=== PATIENT | male | born 1950 | race Caucasian/White ===

== ENCOUNTER 2016-11-02 09:38 | Day surgery (SDC) | payer OTHER ==
--- NOTE | 2016-11-02 07:59 | HP ---
DATE OF SURGERY: 11/02/2016 HISTORY OF PRESENT ILLNESS: The patient is a 65 year-old last colonoscopy seven to eight years ago. He had history of polyps at that time and in need of follow up screening colonoscopy. No bloody stools. No change in bowel movements. PAST MEDICAL HISTORY: Heart disease, diabetes, hypertension. PAST SURGICAL HISTORY: Heart bypass in the past, cholecystectomy in the past. MEDICATIONS: Rosuvastatin, metoprolol, lisinopril, Metformin. ALLERGIES: NKDA. FAMILY HISTORY: Father with colon cancer. Heart disease, diabetes. SOCIAL HISTORY: Chews tobacco, denies smoking currently. Reports some alcohol use denies abuse. REVIEW OF SYSTEMS: Twelve systems reviewed per admission assessment. No chest pain or palpitations other systems negative or noncontributory as above and per preadmission questionnaire. PHYSICAL EXAMINATION: GENERAL: No acute distress. HEENT: Sclerae nonicteric. NECK: No JVD. CHEST: Equal excursion, nonlabored breathing. CVS: Regular rate and rhythm. ABDOMEN: Soft. No peritoneal signs. EXTREMITIES: No significant edema. NEURO: Alert, oriented, moving extremities symmetrically. No gross motor deficits noted. RECTAL: Deferred timed to endoscopy exam. IMPRESSION: History of polyps. Last colonoscopy seven to eight years ago, family history of colon cancer. Need for screening colonoscopy. I feel he is a candidate. He was shown the risk sheet, explained the procedure in detail but not limited to bleeding or infection, small risk of bowel injury or perforation possibly requiring open procedure, small risk of missed or nondiagnosis or incomplete exam possibly requiring barium enema, other studies or procedures, general risk of anesthesia or sedation but not limited to, risk of bowel prep, risk of sedation, postoperative risk of nausea and vomiting or cramping but not limited to. He understands and agrees to the planned procedure and will proceed with outpatient colonoscopy.
[~2016-11-02 09:38] MED LIST: DIPRIVAN 200 MG/20 ML IV ONE; Ketamine HCl 50 MG/ML IJ ONE
[2016-11-02] MEDS ORDERED: Lactated Ringers 1,000 ML IV SCH (10:00)
[2016-11-02 12:32] VITALS: BP 142/67; PULSE 44; O2SAT 98
--- NOTE | 2016-11-03 09:27 | OP ---
SURGERY DATE/TIME: 11/02/2016 1040 PREOPERATIVE DIAGNOSIS: History of polyp, last colonoscopy seven to eight years ago. POSTOPERATIVE DIAGNOSES: 1) Poor prep limiting the exam. 2) Mild diverticulosis. 3) Small internal and external hemorrhoids. 4) Small polyp transverse colon. 5) Small raised lesion versus early polyp or hyperplastic lesion of sigmoid colon. PROCEDURE: Colonoscopy to cecum with hot biopsy removal small polyp transverse colon, hot biopsy and removal of small raised lesions sigmoid colon. SURGEON: Dr. Mich Chandler. ANESTHESIA: MAC. ESTIMATED BLOOD LOSS: Minimal. INDICATIONS: As noted above. Risks and benefits explained in detail but not limited to and consent obtained. DESCRIPTION OF PROCEDURE AND FINDINGS: The patient is taken to the operating room. After official time out and no disagreement with planned procedure, digital rectal exam did not reveal any rectal masses. He did have some small internal and external hemorrhoids. Video colonoscope inserted and passed up the tortuous sigmoid, descending, transverse colon. With the aid of external pressure the scope was able to be passed around to the ascending colon to the cecum. Appendiceal orifice and valve well visualized as well as the tip of the terminal ileum grossly unremarkable. On withdrawal of the scope prep overall was poor with areas of liquidy semisolid and solid stool limiting the exam for small lesions this was suction irrigated as well as possible but did limit the exam. The scope is slowly and carefully withdrawn over the next 12 to 15 minutes with a small polyp noted in the transverse colon that was removed with hot biopsy forceps with brief bursts of cautery elevating it well away from bowel wall. Good hemostasis was noted. Otherwise there was mild diverticulosis. Scope pulled back in sigmoid colon. A very vague small raised lesion. Whether this is an early polyp versus hyperplastic lesion, hyperplasia of a fold is removed with hot biopsy forceps with brief bursts of cautery. Good hemostasis noted. Otherwise in the rectum he had some small internal and external hemorrhoids. There were no signs of any large polyps, masses or obstructing lesions but again bowel prep is poor and did limit the exam. Awaiting final path results but is to remain on follow up endoscopy recommendations.
== END 2016-11-02 12:15 | disposition home or self-care (01) ==
LOC: SDC 09:38
PROVIDERS: ATTEND Surgery
PROC: 0DBL8ZX Excision of Transverse Colon, Via Natural or Artificial Opening Endoscopic, Diagnostic (ICD-10-PCS; principal; 2016-11-02)
PROC: 0DBP8ZX Excision of Rectum, Via Natural or Artificial Opening Endoscopic, Diagnostic (ICD-10-PCS; 2016-11-02)
DX: K57.90 Diverticulosis of intestine, part unspecified, without perforation or abscess without bleeding (principal); D12.3 Benign neoplasm of transverse colon; D12.5 Benign neoplasm of sigmoid colon; K63.9 Disease of intestine, unspecified; K64.4 Residual hemorrhoidal skin tags; K64.8 Other hemorrhoids; Z86.010 Personal history of colon polyps
CPT/HCPCS: 00810; 36415; J2704

== ENCOUNTER 2022-12-17 08:04 | Day surgery (SDC) | payer MEDICARE, OTHER ==
--- NOTE | 2022-12-15 13:06 | HP ---
DATE OF SURGERY: 12/17/2022 HISTORY OF PRESENT ILLNESS: The patient is a 72-year-old man presents for history of colon polyps and family history of colon cancer. The last colonoscopy was with Dr. Chandler. The patient had some colon polyps. He denies any GI signs or symptoms. Father had colon cancer. The patient had a history of upper GI repair. PAST MEDICAL HISTORY: Hypertension, diabetes. PAST SURGICAL HISTORY: Heart stents, coronary artery bypass graft. Lung resection. Cholecystectomy. Abdominal aortic aneurysm repair. ALLERGIES: NKDA. ADHESIVE TAPE. MEDICATIONS: Testosterone, metoprolol, lisinopril, Trulicity. FAMILY HISTORY: Heart disease, colon cancer. SOCIAL HISTORY: Drinks alcohol daily. REVIEW OF SYSTEMS: CONSTITUTIONAL: Denies fever or chills. CHEST: Denies shortness of breath. CVS: Denies chest pain. ABDOMEN: Denies abdominal pain. PHYSICAL EXAMINATION: GENERAL: No acute distress. CHEST: Nonlabored. No shortness of breath. CVS: Regular rate and rhythm. ABDOMEN: Soft. IMPRESSION: History of colon polyps and family history of colon cancer. PLAN: Colonoscopy with Dr. William Tiwari. As dictated by Vania Phillips NP.
[2022-12-17] MEDS ORDERED: Lactated Ringers 1,000 ML IV ONE (08:21)
[2022-12-17] MEDS ORDERED: Lactated Ringers 1,000 ML IV SCH (08:30)
[2022-12-17] MEDS ORDERED: DIPRIVAN 200 MG/20 ML IV ONE ×2 (10:10→10:30)
[2022-12-17] MEDS ORDERED: Xylocaine-Mpf 2% 5 Ml Vial ONE (10:10)
[2022-12-17] MEDS ORDERED: Versed 2 MG/2 ML Injection ONE (10:11)
--- NOTE | 2022-12-17 11:45 | OP ---
SURGERY DATE/TIME: 12/17/2022 1024 PREOPERATIVE DIAGNOSIS: Follow up polyps, history of colon cancer in the family. POSTOPERATIVE DIAGNOSIS: Distal sigmoid 8 mm and 5 mm polyp. PROCEDURES: 1) Colonoscopic examination to cecum. 2) Hot polypectomy x2 of 8 mm and 5 mm distal sigmoid in one jar. SURGEON: William Tiwari M.D. ANESTHESIA: MAC. COMPLICATIONS: None. CONDITION: Stable. INDICATION: The patient has history of polyps, has history of colon cancer in the family. DESCRIPTION OF PROCEDURE: Taken to endoscopy. Left lateral decubitus position. Anal digital examination satisfactory. Scope introduced. Scope advanced to the cecum. Appendiceal orifice normal. Ileocecal valve normal. Base of the cecum normal. Ascending, hepatic, transverse, splenic, descending, sigmoid. In the distal sigmoid an 8 mm and a 5 mm polyp were taken to extinction submitted in one jar. Rectum normal. Anus normal. Follow up five years.
[2022-12-17 11:51] VITALS: O2SAT 97
[2022-12-17 11:55] VITALS: BP 134/72; PULSE 68
== END 2022-12-17 11:53 | disposition home or self-care (01) ==
LOC: SDC 08:04
PROVIDERS: ATTEND Surgery
DX: Z09 Encounter for follow-up examination after completed treatment for conditions other than malignant neoplasm (principal); Z86.010 Personal history of colon polyps; Z80.0 Family history of malignant neoplasm of digestive organs; E11.9 Type 2 diabetes mellitus without complications; K63.5 Polyp of colon
CPT/HCPCS: 82947; J2250; J2704

== ENCOUNTER 2023-02-24 19:38 | Emergency (ER) | payer MEDICARE, OTHER ==
[2023-02-24] MEDS ORDERED: XYLOCAINE 1% HCL 20 ML MDV ONE (19:49)
[2023-02-24 19:56] VITALS: RESP 18; TEMP 98.1
[2023-02-24] MEDS ORDERED: Adacel Vial IM ONE ×2 (19:58→20:18)
[2023-02-24] MEDS ORDERED: Rocephin 1000 MG INJ IM ONE (19:58)
[2023-02-24] MEDS ORDERED: Rocephin 1000 MG INJ ONE (20:18)
--- NOTE | 2023-02-24 20:20 | ERPHSYRPT ---
- History of Present Illness Time Seen by Provider: 02/24/23 20:35 Source: patient Exam Limitations: no limitations Physician History: Patient is a 72-year-old male presents to our ED for evaluation and treatment of laceration to left leg. Patient states he was walking by and cut his leg on a chainsaw. The chainsaw was sitting idle not running. Injury occurred just prior to arrival. Laceration is 10 cm in length. The wound is oozing blood. No other injuries reported. Pain described as an ache that is localized. No radiation. Pain worse with movement and palpation. Pain improved with rest. Tetanus is not up-to-date. at bedside. They voiced no other complaints or concerns at this time. Portions of this note were created with voice recognition technology. There may be grammatical, spelling, punctuation or sound alike errors Timing/Duration: today Severity: moderate Modifying Factors: Improves With: movement, other (Palpation) Associated Symptoms: denies symptoms Allergies/Adverse Reactions: adhesive tape Adverse Reaction (Severe, Verified 02/24/23 20:08) Blisters Home Medications: Aspirin 81 mg PO BID 10/20/16 [History] Metoprolol [place]/Hydrochlorothiaz [Metoprolol ER-Hctz 25-12.5 mg] 1 each PO DAILY 10/20/16 [History] Multivitamin [Multi-Vitamin Daily] 1 ea PO DAILY 10/20/16 [History] lisinopriL [Zestril] 5 mg PO DAILY 10/20/16 [History] Cetirizine HCl [Zyrtec] 10 mg PO DAILY 11/17/22 [History] Escitalopram Oxalate [Lexapro] 10 mg PO DAILY 11/17/22 [History] Dulaglutide [Trulicity] 0.75 mg SQ WEEKLY 12/17/22 [History] Rosuvastatin Calcium 20 mg PO HS 02/24/23 [History] Hx Tetanus, Diphtheria Vaccination/Date Given: No Hx Influenza Vaccination/Date Given: Yes Hx Pneumococcal Vaccination/Date Given: No - Review of Systems Constitutional: No Symptoms, No Fever, No Chills Eyes: No Symptoms Ears, Nose, & Throat: No Symptoms Respiratory: No Symptoms, No Cough, No Dyspnea Cardiac: No Symptoms, No Chest Pain, No Edema, No Syncope Abdominal/Gastrointestinal: No Symptoms, No Abdominal Pain, No Nausea, No Vomiting, No Diarrhea Genitourinary Symptoms: No Symptoms, No Dysuria Musculoskeletal: No Symptoms, No Back Pain, No Neck Pain Skin: No Symptoms, No Rash Neurological: No Symptoms, No Dizziness, No Focal Weakness, No Sensory Changes Psychological: No Symptoms Endocrine: No Symptoms All Other Systems: Reviewed and Negative - Past Medical History Pertinent Past Medical History: Yes Neurological History: No Pertinent History ENT History: No Pertinent History Cardiac History: Coronary Artery Disease, High Cholesterol, Hypertension, Myocardial Infarction (SD) Respiratory History: COPD Endocrine Medical History: Diabetes Type II Musculoskeletal History: Arthritis GI Medical History: No Pertinent History History: No Pertinent History Psycho-Social History: No Pertinent History Male Reproductive Disorders: No Pertinent History Other Medical History: CABG x3 2009,colonoscopy - Past Surgical History Past Surgical History: Yes Neuro Surgical History: No Pertinent History Cardiac: CABG Respiratory: No Pertinent History Gastrointestinal: Cholecystectomy Genitourinary: No Pertinent History Musculoskeletal: No Pertinent History, Orthopedic Surgery Male Surgical History: No Pertinent History Other Surgical History: lung rt growth, heart,abd arertic anurysyn, l knee replaced. - Social History Smoking Status: Former smoker Exposure to second hand smoke: No Drug Use: none Patient Lives Alone: No Significant Family History: heart disease - Nursing Vital Signs Nursing Vital Signs: Initial Vital Signs Temperature 98.1 F 02/24/23 19:49 Pulse Rate 63 02/24/23 19:49 Respiratory Rate 18 02/24/23 19:49 Blood Pressure 111/67 02/24/23 19:49 O2 Sat by Pulse Oximetry 98 02/24/23 19:49 Pain Scale Pain Intensity 0 - Physical Exam General Appearance: no apparent distress, alert Eye Exam: PERRL/EOMI, eyes nml inspection Neck Exam: normal inspection, full range of motion Respiratory Exam: normal breath sounds, airway intact, No respiratory distress Cardiovascular Exam: regular rate/rhythm, normal heart sounds, normal peripheral pulses Gastrointestinal/Abdomen Exam: soft, normal bowel sounds, No tenderness, No mass Back Exam: normal inspection, normal range of motion, No CVA tenderness, No vertebral tenderness Extremity Exam: normal inspection, normal range of motion, pelvis stable, other (Centimeters laceration left lower leg below the patellar tendon. No involvement of the insertion point of the patellar tendon. The wound is oozing. Wound measures 10 cm. No pulsatile bleeding. The extremity is neurovascular tact distally. Compartments are soft. Cap refill less than 2 seconds.) Neurologic Exam: alert, oriented x 3, cooperative, normal mood/affect, nml cerebellar function, nml station & gait, sensation nml, No motor deficits Skin Exam: normal color, warm, dry, No rash Lymphatic Exam: No adenopathy SpO2 Interpretation: normal SpO2: 98 O2 Delivery: Room Air Procedures - Laceration/Wound Repair Left Time of Procedure: 20:47 Wound Location: Left (Left leg) Wound Length (cm): 10 Wound's Depth, Shape: superficial Wound Explored: clean Irrigated: Yes Hibiclens Prep: Yes Anesthesia: 1% Lidocaine Volume Anesthetic (ccs): 4 Wound Debrided: No debridement indicated Wound Repaired With: sutures Suture Size/Type: 4-0, nylon Number of Sutures: 19 Layer Closure?: No Sterile Dressing Applied?: Yes Splint Applied?: No Sling Applied?: No Progress: 02/24/23 20:48 Patient neurovascular intact pre during and post procedure. No intra or postprocedural complications. Patient tolerated procedure well. - Course Nursing assessment & vital signs reviewed: Yes - Radiology Exams Knee X-ray Interpretation: Interpreted by me (No fracture or dislocation. No soft tissue abnormalities. Metallic opacity observed from previous surgery likely residual staple. Intact knee hardware.) Ordered Tests: Active Orders 24 hr Category Date Time Status LOWER LEG Stat Exams 02/24/23 19:57 Ordered Medication Summary Discontinued Medications Generic Name Dose Route Start Last Admin Trade Name Freq PRN Reason Stop Dose Admin Ceftriaxone Sodium 1,000 mg 02/24/23 19:58 02/24/23 20:21 Ceftriaxone Sodium 1000 Mg Inj Vial IM 02/24/23 19:59 1,000 mg STAT ONE Administration Ceftriaxone Sodium Confirm 02/24/23 20:18 Ceftriaxone Sodium 1000 Mg Inj Vial Administered 02/24/23 20:19 Dose 1,000 mg .ROUTE .STK-MED ONE Diphtheria/Tetanus/Acell Pertussis 0.5 ml 02/24/23 19:58 02/24/23 20:20 Tdap --Diph,Pertuss(Acell),Tet Vac/Pf 0.5 Ml Vial IM 02/24/23 19:59 0.5 ml .ONCE ONE Administration Diphtheria/Tetanus/Acell Pertussis Confirm 02/24/23 20:18 Tdap --Diph,Pertuss(Acell),Tet Vac/Pf 0.5 Ml Vial Administered 02/24/23 20:19 Dose 0.5 ml IM .STK-MED ONE Lidocaine HCl Confirm 02/24/23 19:49 Lidocaine Hcl 1% 20 Ml Mdv 20 Ml Ml Administered 02/24/23 19:50 Dose 10 ml .ROUTE .STK-MED ONE - Progress Progress: improved Progress Note: Patient 72-year-old male presents to our ED with a centimeter laceration to the left leg proximal third distal to the patellar tendon insertion. No knee involvement. Wound measures 10 cm. The wound is oozing blood. Patient is on aspirin. No other injuries reported. Extremity neurovascular intact distally. Wound was anesthetized using 1% lidocaine no epinephrine. Wound was irrigated by staff. Wound was closed using 4-0 nylon. 19 simple interrupted sutures placed. Patient tolerated procedure well. No complications. Patient neurovascular tact distally post procedure. Tetanus was updated in our ED. Patient received an IM dose of Rocephin. A prescription for Keflex forwarded to patient's pharmacy. Wound was dressed with a sterile dressing followed by an Piotr wrap. The dressing is to stay intact for 48 hours. After that it may be removed. Suture stay intact for 7 to 10 days. Patient to follow-up with his primary care doctor for suture removal. Patient and his understand instructions. They voiced no other complaints or concerns at this time. Portions of this note were created with voice recognition technology. There may be grammatical, spelling, punctuation or sound alike errors Complexity of problems addressed is low acute uncomplicated No critical care time Complexity of data reviewed and analyzed is moderate. Left leg x-ray performed to assess for bony injury as the laceration is just over the left tibia. No bony injury or foreign body is observed. X-ray reviewed and analyzed. No fracture dislocations. No bony abnormalities observed. Intact left TKA hardware. Risk of complication and a risk morbidity/mortality of patient management is moderate. Wound was repaired using suture. Patient received tetanus and Rocephin in our ED. A prescription for Keflex was forwarded to patient's pharmacy. Vital stable. Extremity neurovascular tact distally. Time spent to discharge patient is approximately 15 minutes. Plan of care established for shared decision making. No social determinants of health present to impede follow-up. Family will contact primary care doctor tomorrow establish a follow-up appointment for reassessment and suture removal. Portions of this note were created with voice recognition technology. There may be grammatical, spelling, punctuation or sound alike errors 02/24/23 20:48 - Departure Departure Disposition: Home Clinical Impression: Laceration Condition: Stable Critical Care Time: No Referrals: CHRIS VALDES PA [Primary Care Provider] - Follow up/PCP as directed Additional Instructions: Discharge/Care Plan ZAYRA PRESSLEY was seen on 02/24/23 in the Emergency Room. The patient was counseled regarding Diagnosis,Lab results, Imaging studies, need for follow up and when to return to the Emergency Room. Prescriptions given: Discharge Note I have spoken with the patient and/or caregivers. I have explained the patient's condition, diagnosis and treatment plan based on the information available to me at this time. I have answered the patient's and/or caregiver's questions and addressed any concerns. The patient and/or caregivers have as good understanding of the patient's diagnosis, condition and treatment plan as can be expected at this point. The vital signs have been stable. The patient's condition is stable and appropriate for discharge from the emergency department. The patient will pursue further outpatient evaluation with the primary care physician or other designated or consulting physician as outlined in the discharge instructions. The patient and/or caregivers are agreeable to this plan of care and follow-up instructions have been explained in detail. The patient and/or caregivers have received these instruction. The patient/and or caregivers are aware that any significant change in condition or worsening of symptoms should prompt an immediate return to this or the closest emergency department or call 911. Prescriptions: Cephalexin Mh 500 mg [Keflex 500 mg] 500 mg PO TID #21 cap
[2023-02-24] MEDS ORDERED: XYLOCAINE 1% HCL 20 ML MDV IJ ONE (20:34)
[2023-02-24] MEDS ORDERED: BACIGUENT PACKET TP ONE (20:35)
[2023-02-24] MEDS ORDERED: BACIGUENT PACKET ONE (20:37)
[2023-02-24 20:50] VITALS: BP 125/67; PULSE 56
[2023-02-24 20:56] VITALS: O2SAT 98
--- NOTE | 2023-02-25 08:37 | XRAY ---
Indication: Pain following injury. Comparison: None 2 view left lower leg demonstrates posterior medial knee vascular clips, moderate scattered vascular calcifications, and incompletely visualized total knee arthroplasty. No other bony, articular, or soft tissue abnormalities.
== END 2023-02-24 20:51 | disposition home or self-care (01) ==
LOC: ED 19:38
DX: S81.812A Laceration without foreign body, left lower leg, initial encounter (principal); W29.3XXA Contact with powered garden and outdoor hand tools and machinery, initial encounter; Y93.01 Activity, walking, marching and hiking; E78.5 Hyperlipidemia, unspecified; I10 Essential (primary) hypertension; E11.9 Type 2 diabetes mellitus without complications; Z79.85 Long-term (current) use of injectable non-insulin antidiabetic drugs; Z79.899 Other long term (current) drug therapy
CPT/HCPCS: 12004; 73590; 90471; 90715; 96372; 99284; J0696; A9270-GY